=== PATIENT | male | born 1975 | race African-American/Black ===

== ENCOUNTER → 2022-10-06 | Day surgery (SDC) | payer OTHER ==
[2022-10-02 16:47] VITALS: BMI 24.3
[2022-10-06 08:18] VITALS: BP 155/97; PULSE 53; RESP 18; TEMP 97.5
== END | disposition home or self-care (01) ==
LOC: FASU 07:54
PROVIDERS: ATTEND Orthopaedic Surgery Adult Reconstructive Orthopaedic Surgery
PROC: 0PB90ZZ Excision of Right Clavicle, Open Approach (ICD-10-PCS; principal; 2022-10-06)
DX: Z53.09 Procedure and treatment not carried out because of other contraindication (principal); M75.41 Impingement syndrome of right shoulder

== ENCOUNTER 2022-11-15 06:06 | Day surgery (SDC) | payer OTHER ==
[2022-11-10 10:20] VITALS: BMI 25.7
[2022-11-15] MEDS ORDERED: MIDAZOLAM HCL 2 MG/2 ML SINGLE DOSE VIAL ONE (07:10)
[2022-11-15] MEDS ORDERED: KETAMINE HCL 200 MG/20 ML VIAL ONE (07:10)
[2022-11-15] MEDS ORDERED: PROPOFOL 60 ML ONE (07:10)
[2022-11-15] MEDS ORDERED: ACETAMINOPHEN INJECTION 100 ML IVPB ONE (07:23)
[2022-11-15] MEDS ORDERED: BUPIVACAINE HCL/PF 0.5% (5 MG/ML) 30 ML VIAL IJ ONE (07:23)
[2022-11-15] MEDS ORDERED: DEXAMETHASONE SOD PHOSPHATE/PF 10 MG/ML SDV ONE (07:23)
[2022-11-15] MEDS ORDERED: ONDANSETRON 4 MG/2 ML VIAL IVPUSH PRN (07:31)
[2022-11-15] MEDS ORDERED: oxyCODONE HCL 5 MG TABLET PO PRN (07:31)
[2022-11-15] MEDS ORDERED: ACETAMINOPHEN 325 MG TABLET (FP) PO PRN (07:31)
[2022-11-15] MEDS ORDERED: LACTATED RINGERS SOLUTION 1,000 ML IV SCH (07:45)
[2022-11-15] MEDS ORDERED: TRANEXAMIC ACID 1000 MG/10 ML VIAL ONE ×2 (08:11→09:09)
[2022-11-15] MEDS ORDERED: ceFAZolin SODIUM 1 GM VIAL ONE ×2 (08:11)
[2022-11-15] MEDS ORDERED: ONDANSETRON 4 MG/2 ML VIAL ONE (08:19)
[2022-11-15] MEDS ORDERED: DEXAMETHASONE SOD PHOSPHATE 4 MG/1 ML VIAL ONE (08:19)
[2022-11-15] MEDS ORDERED: PATIENT'S OWN MEDICATION (NON-FORMULARY) (Atenolol/Chlorthalidone [Atenolol-Chlorthalidone PO SCH (10:00)
[2022-11-15 11:03] VITALS: RESP 18; TEMP 97.2
[2022-11-15 11:50] VITALS: BP 126/84; PULSE 64
[2022-11-16] MEDS ORDERED: ATENOLOL 50 MG TABLET (FP) PO SCH (10:00)
[2022-11-16] MEDS ORDERED: amLODIPine BESYLATE 10 MG TABLET (FP) PO SCH (10:00)
[2022-11-16] MEDS ORDERED: CHLORTHALIDONE 25 MG TABLET PO SCH (10:00)
== END 2022-11-15 11:52 | disposition home or self-care (01) ==
LOC: FASU 06:06
PROVIDERS: ATTEND Orthopaedic Surgery Adult Reconstructive Orthopaedic Surgery
PROC: 0LQ10ZZ Repair Right Shoulder Tendon, Open Approach (ICD-10-PCS; 2022-11-15)
PROC: 0PB90ZZ Excision of Right Clavicle, Open Approach (ICD-10-PCS; principal; 2022-11-15 08:48)
PROC: 0MN10ZZ Release Right Shoulder Bursa and Ligament, Open Approach (ICD-10-PCS; 2022-11-15 08:48)
DX: M75.111 Incomplete rotator cuff tear or rupture of right shoulder, not specified as traumatic (principal); M75.41 Impingement syndrome of right shoulder
CPT/HCPCS: 88304-TC; 88311-TC; 94760